=== PATIENT | male | born 2000 | race Hispanic/Latino ===

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

== ENCOUNTER 2020-05-15 14:46 | Emergency (ER) | payer SELFPAY ==
[2020-05-16 00:08] LABS: SARS-CoV-2 MS2 Positive; SARS-CoV-2 N Gene Positive; SARS-CoV-2 S Gene Positive; SARS-CoV-2 by NAA DETECTED (NotDetected); SARS-CoV-2 orf1ab Positive
== END 2020-05-15 15:11 | disposition home or self-care (01) ==
LOC: ERS 14:46
DX: Z20.828 Contact with and (suspected) exposure to other viral communicable diseases (principal)
CPT/HCPCS: 87635; 99283; U0003

== ENCOUNTER 2022-03-29 02:26 | Emergency (ER) | payer SELFPAY | END 2022-03-29 03:44 | disposition left against medical advice (07) | LOC: ERS 02:26 | DX: Z53.21 Procedure and treatment not carried out due to patient leaving prior to being seen by health care provider (principal) | CPT/HCPCS: 93005 ==

== ENCOUNTER 2024-12-20 16:13 | Emergency (ER) | payer SELFPAY ==
[2024-12-20] MEDS ORDERED: cefTRIAXone (ROCEPHIN) 500 MG VIAL ONE (18:42)
[2024-12-20] MEDS ORDERED: Azithromycin 250 MG TAB ONE (18:42)
[2024-12-21 11:25] LABS: Chlam.trachomatis by PCR,Urine Not Detected (NotDetected); GC N.gonorrhoeae PCR,UrineVOID Not Detected (NotDetected)
== END 2024-12-20 19:03 | disposition home or self-care (01) ==
LOC: ERS 16:13
DX: N34.2 Other urethritis (principal); B35.6 Tinea cruris; F17.290 Nicotine dependence, other tobacco product, uncomplicated; Z20.2 Contact with and (suspected) exposure to infections with a predominantly sexual mode of transmission
CPT/HCPCS: 87491; 87591; 96372; 99283; J0696

== ENCOUNTER 2025-02-15 16:50 | Emergency (ER) | payer SELFPAY ==
[2025-02-15 21:54] LABS: #Basophils 0.03 10x3/uL (0.0-0.2); #Eosinophils 0.27 10x3/uL (0.0-0.7); #Monocytes 0.51 10x3/uL (0.11-0.59); #Neutrophils 2.38 10x3/uL (1.40-6.50); %Basophils 0.5 % (0.0-1.0); %Eosinophils 4.8 % (0.0-10.0); %Lymphocytes 42.4 % (21.0-51.0); %Monocytes 9.2 % (0.0-10.0); %Neutrophils 42.7 % (42.0-75.0); Hematocrit 41.7 % (42.0-52.0); Hemoglobin 13.9 g/dL (14.0-18.0); Mean Corpuscular Hemoglobin 29.5 pg (27.0-31.0); Mean Corpuscular Volume 88.5 fL (78.0-98.0); Platelet Count 221 10x3/uL (130-400); Red Blood Cell (RBC) Count 4.71 mill/uL (4.70-6.10); White Blood Cell (WBC) Count 5.57 10x3/uL (4.8-10.8)
[2025-02-15 22:15] LABS: ALT (SGPT) 25 U/L (Less than 45); AST (SGOT) 54 U/L (11-34); Albumin 4.4 g/dL (3.1-4.5); Alkaline Phosphatase 67 U/L (40-110); Anion Gap 14 mmol/L (10-20); BUN (Urea Nitrogen) 17 mg/dL (8.9-20.6); Bilirubin, Total 0.6 mg/dL (0.3-1.2); CK (CPK) 563 U/L (30-200); Calc. Creatinine Clearance 0 mL/min (70-130); Calcium 9.7 mg/dL (7.8-10.44); Carbon Dioxide 30 mmol/L (22-29); Chloride 101 mmol/L (98-107); Globulin 3.3 g/dL (2.4-3.5); Glucose 99 mg/dL (70-105); Potassium 4.0 mmol/L (3.5-5.1); Sodium 141 mmol/L (136-145)
[2025-02-15 23:25] LABS: Bacteria/HPF None Seen HPF (None Seen); CAUTI Indications for Culture Dysuria,urgency,freq; Glucose, Urine (Dipstick) Normal (Negative); Leukocyte Negative Leu/uL (Negative); Protein, Urine (Dipstick) 10 mg/dL (Neg-Trace); RBC/HPF None Seen HPF (0-3); Specific Gravity, Urine 1.034 (1.002-1.036); WBC/HPF 0-3 HPF (0-3)
[2025-02-15 23:27] LABS: Urine Culture Reflex No No
== END 2025-02-16 00:44 | disposition home or self-care (01) ==
LOC: ERS 16:50
DX: E86.0 Dehydration (principal); F17.290 Nicotine dependence, other tobacco product, uncomplicated
CPT/HCPCS: 36415; 80053; 81001; 82550; 85025; 93005; 96360; 96361